=== PATIENT | male | born 1955 | race Caucasian/White ===

== ENCOUNTER → 2018-02-19 16:22 | Outpatient (CLI) | payer OTHER, SELFPAY ==
--- NOTE | 2018-02-19 16:27 | DI.RAD.S_ITS ---
PROCEDURE: XR HAND RT MIN 3V INDICATIONS: traumatic 3rd MCP joint pain TECHNIQUE: 3 views of the hand(s) acquired. COMPARISON: [facility], , HAND 3V RIGHT, 06/28/2013, 10:51. FINDINGS: Bones: No fractures or dislocations. Carpal bones are normally aligned. No suspicious bony lesions. Mild second MCP degenerative spurring. There is also spurring at the first CMC joint Soft tissues: No suspicious soft tissue calcifications. IMPRESSION: No fracture. Dictated by: Michel Hayden M.D. on 02/19/2018 at 17:13 Approved by: Michel Hayden M.D. on 02/19/2018 at 17:14
--- NOTE | 2018-02-19 16:27 | DI.RAD.S_ITS ---
PROCEDURE: XR HAND LT MIN 3V INDICATIONS: traumatic 3rd MCP joint pain TECHNIQUE: 3 views of the hand(s) acquired. COMPARISON: [facility], , HAND 3V RIGHT, 06/28/2013, 10:51. FINDINGS: Bones: No fractures or dislocations. Carpal bones are normally aligned. No suspicious bony lesions. Chronic appearing calcific focus projects adjacent to the third metacarpal head. No definite donor site is seen. There is spurring of the third MCP joint. Spurring at the first CMC and triscaphe joints. Soft tissues: No suspicious soft tissue calcifications. IMPRESSION: No definite fracture seen. Chronic appearing calcific focus projecting adjacent to the third metacarpal head. Mild left hand joint degeneration. Dictated by: Michel Hayden M.D. on 02/19/2018 at 17:14 Approved by: Michel Hayden M.D. on 02/19/2018 at 17:16
== END ==
PROVIDERS: Family Provider Family Medicine; PCP Family Medicine; Visit Provider Physician Assistant
DX: M79.641 Pain in right hand (principal); M79.642 Pain in left hand; M19.042 Primary osteoarthritis, left hand
CPT/HCPCS: 73130

== ENCOUNTER → 2018-04-17 06:34 | Outpatient (CLI) | payer OTHER, SELFPAY ==
[2018-04-17 07:59] LABS: Blood Urea Nitrogen 20 mg/dL (9-20); Calcium 9.1 mg/dL (8.4-10.2); Carbon Dioxide 29 mmol/L (22-32); Chloride 103 mmol/L (98-107); Cholesterol 173 mg/dL (140-199); Estimated Glomerular Filt Rate > 60.0 mL/min (>60); Glucose 115 mg/dL (80-110); HDL Cholesterol 72 mg/dL (40-60); HEMOLYSIS 21 (0-50); LDL Cholesterol Calculated 91 mg/dL (<100); Potassium 4.6 mmol/L (3.4-5.1); Sodium 140 mmol/L (137-145); Triglycerides 48 mg/dL (35-150)
[2018-04-17 08:16] LABS: Vitamin D 25 Hydroxy (D3) 34.6 ng/mL (30.0-100.0)
[2018-04-17 08:39] LABS: Hemoglobin A1C% w Est Avg Glu 8.6 % (4.0-6.0)
[2018-04-17 08:56] LABS: TSH w/ Reflex to FT4 1.11 uIU/mL (0.47-4.68)
[2018-04-23 08:29] LABS: ANA Screen NEGATIVE (Negative); DNA Antibody Crithidia IFA NEGATIVE (Negative); Rheumatoid Factor <14 IU/mL; Sjogren Antiboday SS-A <1.0 NEG AI (<1.0 NEGATIVE); Sjogren Antiboday SS-B <1.0 NEG AI (<1.0 NEGATIVE); Sm Antibody <1.0 NEG AI (<1.0 NEGATIVE); Sm/RNP Antibody <1.0 NEG AI (<1.0 NEGATIVE)
== END ==
PROVIDERS: PCP Student in an Organized Health Care Education/Training Program; Visit Provider Student in an Organized Health Care Education/Training Program
DX: E55.9 Vitamin D deficiency, unspecified (principal); E10.9 Type 1 diabetes mellitus without complications
CPT/HCPCS: 36415; 80048; 80061; 82306; 83036; 84443; 86038; 86430

== ENCOUNTER → 2018-07-04 13:36 | Outpatient (CLI) | payer OTHER, SELFPAY ==
--- NOTE | 2018-07-04 13:44 | DI.MRI.S_ITS ---
PROCEDURE: MR HAND LT WO CON INDICATIONS: Recent hand injury TECHNIQUE: Noncontrast coronal T1 spin echo and T2 fast spin echo with fat saturation, axial proton density fast spin echo and T2 fast spin echo with fat saturation, sagittal T1 spin echo and STIR through the hand and fingers. COMPARISON: [facility], CR, XR HAND LT MIN 3V, 02/19/2018, 16:09. FINDINGS: Image quality: Excellent. Bones: The bones are normally aligned, without marrow contusions or fractures. Subcentimeter marrow signal changes involving the second, third and fifth metacarpal heads, demonstrating T1 hypointensity and T2 hyperintensity. Soft tissues: Visualized muscles demonstrate normal bulk and internal signal. No intramuscular masses identified. No ganglion cysts. Thickening of the extensor digitorum tendon with intrasubstance signal change suggesting age-indeterminate strain. This is most prominent in the level of the distal radius. Low-grade extensor carpi radialis longus and brevis tenosynovitis. IMPRESSION: No evidence of occult fracture Thickening and intrasubstance signal change of the extensor digitorum tendon suggesting age-indeterminate strain. Please correlate to exam findings. Low-grade extensor carpi radialis longus and brevis tenosynovitis Subcentimeter marrow signal changes at the second, third and fifth metacarpal heads raising possibility of erosive arthropathy although incidental degenerative cystic changes in the differential. Recommend correlation with laboratory studies and if needed MRI of the hand with and without contrast could be performed to assess for inflammatory arthropathy. Dictated by: Michel Hayden M.D. on 07/06/2018 at 9:30 Approved by: Michel Hayden M.D. on 07/06/2018 at 9:41
== END ==
PROVIDERS: PCP Student in an Organized Health Care Education/Training Program; Visit Provider Physical Medicine & Rehabilitation
DX: S69.92XA Unspecified injury of left wrist, hand and finger(s), initial encounter (principal); M65.842 Other synovitis and tenosynovitis, left hand
CPT/HCPCS: 73218

== ENCOUNTER → 2019-02-05 16:17 | Outpatient (CLI) | payer OTHER, SELFPAY ==
[2019-02-05 17:18] LABS: BUN Creatinine Ratio 21.1 (6-22); Blood Urea Nitrogen 19 mg/dL (9-20); Calcium 9.7 mg/dL (8.4-10.2); Carbon Dioxide 28 mmol/L (22-32); Chloride 100 mmol/L (98-107); Estimated Glomerular Filt Rate > 60.0 mL/min (>60); Glucose 212 mg/dL (80-110); HEMOLYSIS 26 (0-50); Potassium 4.7 mmol/L (3.4-5.1); Sodium 138 mmol/L (137-145)
[2019-02-05 17:19] LABS: Creatinine Urine Random 54.2 mg/dL
[2019-02-05 17:35] LABS: Microalbumin Urine Random < 0.6 mg/dL (0-1.6)
[2019-02-05 17:47] LABS: Prostate Specific Antigen Scrn 0.672 ng/mL (0.1-4.0)
== END ==
PROVIDERS: PCP Student in an Organized Health Care Education/Training Program; Visit Provider Student in an Organized Health Care Education/Training Program
DX: Z12.5 Encounter for screening for malignant neoplasm of prostate (principal); E10.9 Type 1 diabetes mellitus without complications; I10 Essential (primary) hypertension
CPT/HCPCS: 36415; 80048; 82043; 82570; 83036; G0103

== ENCOUNTER 2019-05-21 07:27 | Day surgery (SDC) | payer OTHER, SELFPAY ==
[2019-05-21 07:47] VITALS: BP 131/69; PULSE 68; RESP 15; TEMP 36.6; O2SAT 98; BMI 21.7
--- NOTE | 2019-05-21 07:57 | PM.HP.1 ---
History of Present Illness History of Present Illness Date Patient Seen: 05/21/19 Time Patient Seen: 07:57 Chief complaint: 20605 Narrative: This is a 63-year-old man who had a prior screening colonoscopy 11 years ago, was told that it was normal and he needed a repeat colonoscopy in 10 years. He denies any melena, hematochezia, unexplained weight loss, or unexplained abdominal pain. ROS: Thirteen system review is otherwise negative other than as mentioned below and in HPI. PE: GENERAL: Well groomed and cooperative. Appears stated age. Answers questions promptly and appropriately. Vital signs noted. HENT: Normocephalic, atraumatic. Hearing intact. Oral mucosa is pink and moist. EYES: Conjunctiva pink, sclera white, no periorbital swelling. CARDIOVASCULAR: Regular rate. No pedal edema. RESPIRATORY: Non-tachypneic, breathing comfortably on room air. GASTROINTESTINAL: Abdomen soft and non-distended GENITALURINARY: No flank tenderness. MUSCULOSKELETAL: Equal tone and mass bilaterally. SKIN: Warm, dry, soft, appropriate color for ethnicity. No other lesions, rashes, or wounds. NEURO: Alert and Oriented X 3. No gross sensory deficits, or cognitive issues. PSYCH: Appropriate affect and mood. Patient History Surgical History History of vasectomy (Resolved 1982) Family & Social History Family History Father Parkinson's disease Mother Lung cancer Brother Paraplegia MVA (motor vehicle accident) Brother No problems noted. Daughter No problems noted. Tobacco & Substance use: Smoking Status Never smoker alcohol intake current Meds Home Medications and Allergies Home Medications Medication Instructions Recorded Confirmed Type lancets #100 each 04/24/18 05/21/19 Rx insulin glargine 100 unit/mL 20 unit SUBCUT HS #20 ml 09/15/18 05/21/19 Rx subcutaneous solution Glucose: Test Strips #1 ea 09/24/18 05/21/19 Rx atorvastatin 20 mg tablet 20 mg PO HS #90 tab 12/11/18 05/21/19 Rx losartan 50 mg tablet 50 mg PO DAILY #90 tab 12/21/18 05/21/19 Rx aspirin 81 mg tablet,delayed 81 mg PO DAILY 02/06/19 05/21/19 History release BD INSULIN SYRINGE Ultra Fine #100 each 02/08/19 05/21/19 Rx 0.3ML insulin aspart U-100 100 unit/mL See Rx Instructions SUBCUT SEE 05/14/19 05/21/19 Rx (3 mL) subcutaneous pen INSTRUCTIONS #3 each MDD 30 units Allergies Allergy/AdvReac Type Severity Reaction Status Date / Time lisinopril AdvReac Mild Cough Verified 02/05/19 15:36 Assessment & Plan Assessment and plan (1) At average risk for colon cancer: Current visit: Yes Status: Acute (2) Encounter for screening colonoscopy: Current visit: Yes Status: Acute Assessment & Plan narrative: Risks and benefits of colonoscopy were discussed with the patient including risk of bleeding, perforation, need for additional procedures. The patient desires to proceed with his colonoscopy procedure. Time Spent With Patient Time with patient: 15-24 minutes Quality VTE Deep Vein Thrombosis/Pulmonary Embolism Present on Admission: No
[2019-05-21] MEDS: SODIUM CHLORIDE 0.9% 1,000 ML 200 ML IV (08:01)
--- NOTE | 2019-05-21 08:25 | PM.OP.ENDO ---
Operative Date/Time/Diagnoses Date of procedure: 05/21/19 Time of procedure: 08:25 Pre-op diagnosis: Average risk for colon cancer Post-op diagnosis: same Procedure & Clinicians Study performed: Screening colonoscopy Same procedure as scheduled: Yes Indications: Average risk for colon cancer, 10 years since last colonoscopy Surgeon: Jing Melendez Procedure Notes SCOAP/Timeout: Performed Procedure in detail: The patient was brought to the room and placed in left lateral decubitus position with all bony prominences padded. A time-out was performed and then the patient was given procedural sedation starting with 4 mg of Versed and 100 mcg of fentanyl. A total of 5 mg of Versed and 150 micro g of fentanyl were used for the entire procedure. Vitals were monitored throughout the procedure and remained stable. Once adequately sedated the procedure was begun. A rectal exam was performed revealing no abnormalities. The colonoscope was then introduced to the rectum and advanced to the cecum in the usual fashion. The cecum was identified by the appendiceal orifice, the mucosal tri-fold, and the ileocecal valve. The scope was then retracted while rotating side to side and examining each mucosal fold. At the conclusion of the procedure retroflexion was performed and small grade 2 internal hemorrhoids without stigmata of bleeding were seen. The scope was then withdrawn from the rectum the procedure was concluded. The patient tolerated the procedure well and was transferred to the PACU in stable condition. Scope withdrawal time: 8 Sedation minutes: 20 Findings: internal hemorrhoids Specimen(s): none sent Complications: none Impression: Normal colon, internal hemorrhoids Post-procedure Recommendations: Colonscopy in 10 years (Unless concerning symptoms arise before then) Follow up: as needed Disposition: PACU
[2019-05-21] MEDS: fentaNYL 250 MCG/5 ML INJ IV (08:28)
[2019-05-21] MEDS: MIDAZOLAM 5 MG/5 ML VIAL IV (08:28)
[2019-05-21 08:30] VITALS: BP 113/64; PULSE 78; RESP 27; TEMP 36.8; O2SAT 96
[2019-05-21 08:35] VITALS: BP 116/57; PULSE 76; RESP 17; O2SAT 98
[2019-05-21 08:39] VITALS: BP 114/64; PULSE 76; RESP 18; TEMP 36.9; O2SAT 98
== END 2019-05-21 08:58 | disposition home or self-care (01) ==
PROVIDERS: PCP Student in an Organized Health Care Education/Training Program; Visit Provider Surgery
PROC: 0DJD8ZZ Inspection of Lower Intestinal Tract, Via Natural or Artificial Opening Endoscopic (ICD-10-PCS; CPT 45378; principal; 2019-05-21 08:30)
DX: Z12.11 Encounter for screening for malignant neoplasm of colon (principal); E11.9 Type 2 diabetes mellitus without complications; Z79.4 Long term (current) use of insulin; I10 Essential (primary) hypertension; E78.5 Hyperlipidemia, unspecified; K64.1 Second degree hemorrhoids
CPT/HCPCS: 45378; 99152; J2250; J3010

== ENCOUNTER → 2019-08-11 11:38 | Outpatient (CLI) | payer OTHER, SELFPAY ==
[2019-08-11 12:26] LABS: Hemoglobin A1C% w Est Avg Glu 8.2 % (4.0-6.0)
[2019-08-11 13:05] LABS: BUN Creatinine Ratio 21.3 (6-22); Blood Urea Nitrogen 16 mg/dL (9-20); Calcium 9.2 mg/dL (8.4-10.2); Carbon Dioxide 29 mmol/L (22-32); Chloride 102 mmol/L (98-107); Estimated Glomerular Filt Rate > 60.0 mL/min (>60); Glucose 295 mg/dL (80-110); HEMOLYSIS < 15 (0-50); Potassium 4.8 mmol/L (3.4-5.1); Sodium 136 mmol/L (137-145)
== END ==
PROVIDERS: PCP Student in an Organized Health Care Education/Training Program; Referring Provider Student in an Organized Health Care Education/Training Program; Visit Provider Student in an Organized Health Care Education/Training Program
DX: E11.9 Type 2 diabetes mellitus without complications (principal)
CPT/HCPCS: 36415; 80048; 83036

== ENCOUNTER → 2019-12-06 10:37 | Outpatient (CLI) | payer OTHER, SELFPAY ==
[2019-12-06 11:13] LABS: Hemoglobin A1C% w Est Avg Glu 8.3 % (4.0-6.0)
== END ==
PROVIDERS: PCP Student in an Organized Health Care Education/Training Program; Referring Provider Student in an Organized Health Care Education/Training Program; Visit Provider Student in an Organized Health Care Education/Training Program
DX: E11.9 Type 2 diabetes mellitus without complications (principal)
CPT/HCPCS: 36415; 83036

== ENCOUNTER → 2020-05-31 08:25 | Outpatient (CLI) | payer OTHER, SELFPAY ==
[2020-05-31 09:43] LABS: Hemoglobin A1C% w Est Avg Glu 8.3 % (4.0-6.0)
[2020-05-31 10:08] LABS: Microalbumin Urine Random < 0.6 mg/dL (0-1.6)
[2020-05-31 10:29] LABS: Prostate Specific Antigen Scrn 0.605 ng/mL (0.1-4.0)
== END ==
PROVIDERS: PCP Student in an Organized Health Care Education/Training Program; Referring Provider Student in an Organized Health Care Education/Training Program; Visit Provider Student in an Organized Health Care Education/Training Program
DX: E10.9 Type 1 diabetes mellitus without complications (principal); Z12.5 Encounter for screening for malignant neoplasm of prostate
CPT/HCPCS: 36415; 82043; 82570; 83036; G0103

== ENCOUNTER → 2020-08-10 09:46 | Outpatient (CLI) | payer OTHER, SELFPAY ==
[2020-08-10 10:39] LABS: COVID19 -Nasal RAPID Negative (Negative)
== END ==
PROVIDERS: PCP Student in an Organized Health Care Education/Training Program; Visit Provider Student in an Organized Health Care Education/Training Program
DX: R09.81 Nasal congestion (principal); Z20.822 Contact with and (suspected) exposure to COVID-19
CPT/HCPCS: 87635

== ENCOUNTER → 2021-01-16 15:24 | Outpatient (CLI) | payer OTHER, SELFPAY ==
[2021-01-16 16:17] LABS: Hemoglobin A1C% w Est Avg Glu 8.3 % (4.0-6.0)
== END ==
PROVIDERS: PCP Student in an Organized Health Care Education/Training Program; Referring Provider Student in an Organized Health Care Education/Training Program; Visit Provider Student in an Organized Health Care Education/Training Program
DX: E10.9 Type 1 diabetes mellitus without complications (principal)
CPT/HCPCS: 36415; 83036

== ENCOUNTER → 2021-05-08 07:06 | Outpatient (CLI) | payer OTHER, SELFPAY ==
[2021-05-08 08:05] LABS: Hemoglobin A1C% w Est Avg Glu 8.7 % (4.0-6.0)
== END ==
PROVIDERS: PCP Student in an Organized Health Care Education/Training Program; Referring Provider Student in an Organized Health Care Education/Training Program; Visit Provider Student in an Organized Health Care Education/Training Program
DX: E10.9 Type 1 diabetes mellitus without complications (principal)
CPT/HCPCS: 36415; 83036

== ENCOUNTER → 2021-08-28 06:40 | Outpatient (CLI) | payer OTHER, SELFPAY ==
[2021-08-28 08:10] LABS: Creatinine Urine Random 112.7 mg/dL
[2021-08-28 08:15] LABS: Microalbumi Creatinin Ratio Ur 6.2 ug/mg CR (<30); Microalbumin Urine Random 0.7 mg/dL (0-1.6)
[2021-08-28 08:18] LABS: Hemoglobin A1C% w Est Avg Glu 8.3 % (4.0-6.0)
[2021-08-28 08:20] LABS: BUN Creatinine Ratio 20.9 (6-22); Blood Urea Nitrogen 19 mg/dL (9-20); Calcium 8.6 mg/dL (8.4-10.2); Carbon Dioxide 30 mmol/L (22-32); Chloride 105 mmol/L (98-107); Cholesterol 194 mg/dL (140-199); Estimated Glomerular Filt Rate > 60 mL/min (>60); Glucose 161 mg/dL (80-110); HDL Cholesterol 103 mg/dL (40-60); HEMOLYSIS < 15 (0-50); LDL Cholesterol Calculated 83 mg/dL (<100); Potassium 4.3 mmol/L (3.4-5.1); Sodium 140 mmol/L (137-145); Triglycerides 38 mg/dL (35-150)
[2021-08-28 08:49] LABS: Prostate Specific Antigen Scrn 0.961 ng/mL (0.1-4.0)
== END ==
PROVIDERS: PCP Student in an Organized Health Care Education/Training Program; Referring Provider Student in an Organized Health Care Education/Training Program; Visit Provider Student in an Organized Health Care Education/Training Program
DX: E10.69 Type 1 diabetes mellitus with other specified complication (principal); E10.9 Type 1 diabetes mellitus without complications; E78.2 Mixed hyperlipidemia; I10 Essential (primary) hypertension; Z12.5 Encounter for screening for malignant neoplasm of prostate
CPT/HCPCS: 36415; 80048; 80061; 82043; 82570; 83036; G0103

== ENCOUNTER → 2022-01-28 12:46 | Outpatient (CLI) | payer OTHER, SELFPAY ==
[2022-01-28 18:53] LABS: Hemoglobin A1C% w Est Avg Glu 8.8 % (4.0-6.0)
== END ==
PROVIDERS: PCP Student in an Organized Health Care Education/Training Program; Referring Provider Student in an Organized Health Care Education/Training Program; Visit Provider Student in an Organized Health Care Education/Training Program
DX: E10.9 Type 1 diabetes mellitus without complications (principal)
CPT/HCPCS: 36415; 83036

== ENCOUNTER → 2022-09-11 06:46 | Outpatient (CLI) | payer OTHER, SELFPAY ==
[2022-09-11 08:46] LABS: BUN Creatinine Ratio 21.6 (6-22); Blood Urea Nitrogen 16 mg/dL (9-20); Calcium 8.3 mg/dL (8.4-10.2); Carbon Dioxide 30 mmol/L (22-32); Chloride 103 mmol/L (98-107); Cholesterol 167 mg/dL (140-199); Estimated Glomerular Filt Rate > 60 mL/min (>60); Glucose 184 mg/dL (80-110); HDL Cholesterol 94 mg/dL (40-60); HEMOLYSIS < 15 (0-50); LDL Cholesterol Calculated 63 mg/dL (<100); Potassium 4.3 mmol/L (3.4-5.1); Sodium 138 mmol/L (137-145); Triglycerides 52 mg/dL (35-150)
[2022-09-11 09:10] LABS: Creatinine Urine Random 124.2 mg/dL
[2022-09-11 09:15] LABS: Microalbumi Creatinin Ratio Ur 5.6 ug/mg CR (<30); Microalbumin Urine Random 0.7 mg/dL (0-1.6)
[2022-09-12 07:36] LABS: Labcorp Hemoglobin (Hb) A1c 9.1 % (4.8-5.6)
== END ==
PROVIDERS: PCP Student in an Organized Health Care Education/Training Program; Referring Provider Student in an Organized Health Care Education/Training Program; Visit Provider Student in an Organized Health Care Education/Training Program
DX: E10.69 Type 1 diabetes mellitus with other specified complication (principal); E78.2 Mixed hyperlipidemia; I10 Essential (primary) hypertension
CPT/HCPCS: 36415; 80048; 80061; 82043; 82570; 83036

== ENCOUNTER → 2023-06-09 14:24 | Outpatient (CLI) | payer OTHER, SELFPAY ==
[2023-06-09 16:27] LABS: HEMOLYSIS < 15 (0-50)
[2023-06-09 16:34] LABS: BUN Creatinine Ratio 15.6 (6-22); Blood Urea Nitrogen 10 mg/dL (9-20); Carbon Dioxide 31 mmol/L (22-32); Chloride 101 mmol/L (98-107); Estimated Glomerular Filt Rate > 60 mL/min (>60); Glucose 232 mg/dL (80-110); Sodium 137 mmol/L (137-145)
[2023-06-09 17:03] LABS: TSH w/ Reflex to FT4 1.34 uIU/mL (0.47-4.68)
[2023-06-09 17:13] LABS: Prostate Specific Antigen 0.952 ng/mL (0.10-4.00)
[2023-06-11 06:28] LABS: Labcorp Hemoglobin (Hb) A1c 9.7 % (4.8-5.6)
== END ==
PROVIDERS: PCP Internal Medicine; Referring Provider Internal Medicine; Visit Provider Internal Medicine
DX: N40.1 Benign prostatic hyperplasia with lower urinary tract symptoms (principal); N13.8 Other obstructive and reflux uropathy; E10.9 Type 1 diabetes mellitus without complications; I10 Essential (primary) hypertension
CPT/HCPCS: 36415; 80048; 83036; 84153; 84443

== ENCOUNTER → 2023-07-23 13:53 | Outpatient (CLI) | payer OTHER, SELFPAY ==
--- NOTE | 2023-07-25 11:21 | DIAB.INIT ---
Initial Diabetes Education Assessment Name: Jose Kaiser Date: 07/23/23 Time: 2-3p Dx: Type I Diabetes Jose presents for initial Dm visit. Reports T1DM diagnosis since 2001 at age 46 when he was experiencing weight loss, excessive thirst. FH of T1 with his mother. He manages diabetes with pen MDI and meter. Ordered Dexcom G7. Not wanting a pump at this time. Looking forward to CGM use. Has questions about placement and use. Up to date on eye and dental exams. checks feel daily. Recent hgA1c of 9.7%. Reports lows with wake him, but no other symptoms. Other times he may experience fast heartbeat and vision changes. Treats lows under 50mg/dl with 4oz juice and sometimes protein foods. May treat under 70 md/dl with cereal or added protein foods. Carries glucose gel for lows on the go. Not familiar with carb counting in detail. Not using carb counting for insulin dosing. Dosage seems to be based on trial and error. Has never seen endo. Stated he is unsure what endo would offer. No previous DM education with CDE or RD. Reports not wanting pump in part due to knowing of someone that had a severe pump malfunction that resulted in hospitalization and severe hypoglycemia. 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 He lives with his , whom worries about his hypoglycemia per report. Physical Activity: push ups, bike, active at work. Self-Monitoring Blood Glucose: Fingersticks often through the day, FBG, pre/post meal, HS, for lows. Checks 7x per day or more. Reports FBG of 140-240mg/dl. 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 Provided appropriate educational handouts. Discussed the following topics: Completed intake assessment. Discussed barriers to care. Reviewed Rule of 15 for lows Discussed CGM use, precautions, when to use meter, accuracy, and how to self place Reviewed I:C and correction as an option for managing MDI Reviewed other tech for insulin therapy: pump or patch Discussed role of truckload owner operator for management of T1 Brief review of Dm complication risk Created SMART goals for patient self-care and success. Goals: Call FILIBERTO/[facility] for CGm placement/education prn Download G7 jordan and Clarity jordan Use Rule of 15 for lows Follow-up: KD PAUL follow-up prn. Offered f/u visit, however Jose would like to call for f/u prn. This FILIBERTO/[facility] feels that he could benefit from follow-up given new tech and elevated hgA1c. Jose reports feeling confident that CGM use will allow him to manage his BG more effectively and does not need f/u at this time. Dominique Leahy RDN, [facility] Certified Diabetes Care and Social Work Specialist P: [phone] Thank you for this referral
== END ==
PROVIDERS: PCP Internal Medicine; Referring Provider Internal Medicine; Visit Provider Internal Medicine
DX: E11.9 Type 2 diabetes mellitus without complications (principal); Z79.4 Long term (current) use of insulin; Z71.3 Dietary counseling and surveillance
CPT/HCPCS: G0108

== ENCOUNTER → 2023-12-09 14:32 | Outpatient (CLI) | payer OTHER, SELFPAY ==
[2023-12-09 15:10] LABS: Hemoglobin A1C% w Est Avg Glu 7.9 % (4.0-6.0)
[2023-12-09 15:20] LABS: Aspartate Aminotransferase 29 IU/L (17-59); Blood Urea Nitrogen 16 mg/dL (9-20); Calcium 9.4 mg/dL (8.4-10.2); Carbon Dioxide 29 mmol/L (22-32); Chloride 105 mmol/L (98-107); Cholesterol 169 mg/dL (140-199); Estimated Glomerular Filt Rate > 60 mL/min (>60); Glucose 79 mg/dL (80-110); HEMOLYSIS < 15 (0-50); Potassium 4.2 mmol/L (3.4-5.1); Sodium 139 mmol/L (137-145); Triglycerides 44 mg/dL (35-150)
[2023-12-09 15:29] LABS: HDL Cholesterol 111 mg/dL (40-60); LDL Cholesterol Calculated 49 mg/dL (<100)
[2023-12-09 17:52] LABS: Creatinine Urine Random 79.53 mg/dL
[2023-12-09 17:59] LABS: Microalbumin Urine Random < 0.6 mg/dL (0-1.6)
== END ==
LOC: LAB 14:33
PROVIDERS: PCP Internal Medicine; Referring Provider Internal Medicine; Visit Provider Internal Medicine
DX: E10.69 Type 1 diabetes mellitus with other specified complication (principal); E78.2 Mixed hyperlipidemia; I10 Essential (primary) hypertension
CPT/HCPCS: 36415; 80048; 80061; 82043; 82570; 83036; 84450

== ENCOUNTER → 2024-03-14 15:01 | Outpatient (CLI) | payer OTHER, SELFPAY ==
--- NOTE | 2024-03-14 15:03 | DI.RAD.S_ITS ---
PROCEDURE: XR CHEST 2V INDICATIONS: Cough TECHNIQUE: 2 views of the chest were acquired. COMPARISON: None. FINDINGS: Surgical changes and devices: None. Lungs and pleura: Lungs are clear. No pleural effusions or pneumothorax. Mediastinum: Mediastinal contours are normal. Heart size is normal. Bones and chest wall: No suspicious bony abnormalities. Soft tissues appear unremarkable. IMPRESSION: Normal two view chest Approved by: Alan Pereira M.D. on 03/14/2024 at 14:54
== END ==
LOC: RAD 15:02
PROVIDERS: PCP Internal Medicine; Referring Provider Nurse Practitioner Family; Visit Provider Nurse Practitioner Family
DX: R05.9 Cough, unspecified (principal)
CPT/HCPCS: 71046

== ENCOUNTER → 2025-01-04 12:58 | Outpatient (CLI) | payer OTHER, SELFPAY ==
--- NOTE | 2025-02-03 11:13 | DIAB.INIT ---
Initial Diabetes Education Assessment Name: Jose Kaiser Date: 01/04/25 Time: 105-205p Dx: Type I Diabetes Provider: Fran Preferred Learning Style: Watching Jose presents with , Earline, for initial Dm visit. Previous RD visit in 06/2023. At that time Jose was not interested in pump therapy, but today he expressed interest in learning more about diabetes technology. Currently managing with MDI. After reviewing each pump type, Jose would like to go with a tubeless pump, Omnipod. Anthropometrics: Ht: 5'10 Wt: 149# 11/2024 Weight history: Physical Activity: Walking 5 days per week Self-Monitoring Blood Glucose: using CGM, not reviewed today. Date Pre Post Pre Post Pre Post HS Diabetes Medications: 15u Glargine 6-15u ac Novolog Pertinent Labs:. 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 Provided appropriate educational handouts. Discussed the following topics: Completed intake assessment. Review of insulin pump types, function, closed loop, bolusing, placement, pro/cons Created SMART goals for patient self-care and success. Goals: diet supervisor OP5 once rx'd Follow-up: KD PAUL follow-up for pump start after pump picked up. After this visit pt determined insurance will not cover the pump he prefers, OP5. RD communicated with Omnipod team and plan is to start with samples of OP5 and then once insurance changes in April, will try with insurance coverage at that time. Dominique Leahy RDN, [facility] Certified Diabetes Care and Drawing In Machine Tender Helper P: [phone] Thank you for this referral
== END ==
LOC: DIET 12:58
PROVIDERS: PCP Internal Medicine; Referring Provider Internal Medicine
DX: E10.9 Type 1 diabetes mellitus without complications (principal); Z71.3 Dietary counseling and surveillance
CPT/HCPCS: G0108

== ENCOUNTER → 2025-03-03 09:26 | Outpatient (CLI) | payer OTHER, SELFPAY ==
--- NOTE | 2025-03-03 14:39 | DIAB.FU ---
Follow-up Diabetes Education Assessment: Omnipod 5 Sample Start Name: Jose Kaiser Date: 03/03/25 Time: 250-3227a Dx: Type I Diabetes Provider: Fran Garcia presents with , Earline, for OP5 start and training. Current insurance will not cover the insulin pump that he prefers, Omnipod5; however, Omnipod representatives have agreed to provide samples until next year when Jose's insurance should change for better pump coverage. If not, we will address the option for a different pump at that time. Continues with MDI at this time. Settings: TDI of 38u x .75: 28u Kg of 68 x 0.5: 33.85 avu TDI Basal rate: 0.65u/hour IC: 13g/u ISF: 55mg/dl per unit target and correct above 110mg/dl Max bolus 15u per pt request Max basal: 2x basal rate = 1.3u/hr Self-Monitoring Blood Glucose: TIR: 25% very high 45% high 30% in range 0% low <1% very low avmg/dl std dev: 65mg/dl GMI: 8.5% variation: 30% Diabetes Medications: 15u Glargine 6-15u ac Novolog Pertinent Labs:. 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 Provided appropriate educational handouts. Discussed the following topics: Set up OP5 and glooko acct, connected to IH glooko for review of reports Reviewed use, precautions, benefits of OP5 system, how it connects to Dexcom G7 Reviewed basal and bolus Reviewed how to bolus for meals and correction Set up custom foods to bolus for meals Discussed replacement of pod and alerts on pump Reviewed importance of limited time off pump and when to go back to MDI if needed Encouraged keeping insulin pens/needles for back up Discussed scar tissue and placement of OP5 RD will message PCP for vials Goals: Bolus for intake and correction Follow-up: RDN CDCES follow-up over phone tomorrow and in three days, then 1:1 visit 5 days from today. Dominique Leahy RDN, [facility] Certified Diabetes Care and Pin Machine Tender P: [phone] Thank you for this referral
== END ==
LOC: DIET 09:26
PROVIDERS: PCP Internal Medicine; Referring Provider Internal Medicine
DX: Z46.81 Encounter for fitting and adjustment of insulin pump (principal); Z71.3 Dietary counseling and surveillance; E10.9 Type 1 diabetes mellitus without complications
CPT/HCPCS: G0108

== ENCOUNTER → 2025-03-09 12:50 | Outpatient (CLI) | payer OTHER, SELFPAY ==
--- NOTE | 2025-03-09 12:57 | DIAB.MNTFU ---
Follow-up Diabetes Medical Nutrition Therapy Assessment Name: Jose Kaiser Date: 03/09/25 Time: 1-2p Dx: Type I Diabetes Provider: Fran Garcia presents with , Earline. [place] OP5 pump. Bolusing for meals, but often still having postprandial elevations. Could reduce IC ratio by 20% to see if that provides better coverage, however pt would like to try bolusing more first. Today we reviewed current portions, often 2c rice/pasta or 1 baked potato, cereal x 1.5c. Needed review of how to add custom foods for bolusing and how to read food labels. Settings: TDD: 21.5u Basal rate: 0.65u/hour IC: 13g/u ISF: 55mg/dl per unit target and correct above 110mg/dl Max bolus 15u per pt request Max basal: 2x basal rate = 1.3u/hr Self-Monitoring Blood Glucose: Improved TIR but still having excessive hyperglycemia. Needs better postprandial coverage. TIR: 15% very high 29% high 56% in range 0% low 0% very low avmg/dl std dev: 61mg/dl GMI: % variation: 33.3% TIR: 25% very high 45% high 30% in range 0% low <1% very low avmg/dl std dev: 65mg/dl GMI: 8.5% variation: 30% Diabetes Medications: 15u Glargine-- d/c Novolog via pump Pertinent Labs:. 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 Provided appropriate educational handouts. Discussed the following topics: Reviewed label reading Discussed bolusing for meals Added custom foods based on reported portions and carb content Reviewed how insulin works in OP5 Goals: Bolus for intake and correction- met use custom foods- new shell shop supervisor vials- new Add custom food carb prn- new Follow-up: RDN CDCES follow-up 3-4 weeks for sooner prn. RD will check Jose's OP5 reports in 2 days and 7 days remotely and call prn. Dominique Leahy RDN, [facility] Certified Diabetes Care and Book Critic P: [phone] Thank you for this referral
== END ==
LOC: DIET 12:50
PROVIDERS: PCP Internal Medicine; Referring Provider Internal Medicine
DX: E11.65 Type 2 diabetes mellitus with hyperglycemia (principal); Z71.3 Dietary counseling and surveillance; Z96.41 Presence of insulin pump (external) (internal)
CPT/HCPCS: 97802

== ENCOUNTER → 2025-03-30 11:08 | Outpatient (CLI) | payer OTHER, SELFPAY ==
--- NOTE | 2025-03-30 13:17 | DIAB.FU ---
Follow-up Diabetes Education Assessment Name: Jose Kaiser Date: 03/30/25 Time: 11a Dx: Type I Diabetes Provider: Fran Garcia presents with , Earline. Seems to be having accuracy issues with Dexcom G7, which is impacting Omnipod function. RD has noticed this with other patients as well. Today Jose would like to temporarily increase the target for his insulin pump from 110 to 130mg/dl. Also having elevations after meals often, even when bolusing, indicating need for more insulin at meals and a change to IC ratio. Jose would like to make conservative changes. Currently bolusing without using sensor info, which would also help with postprandial elevations. Questions regarding pulling insulin from old and new vials. Settings: TDD: 21.5u ----30.4u Basal rate: 0.65u/hour IC: 13g/u--- 12g/u ISF: 55mg/dl per unit target and correct above 110mg/dl--- 130mg/dl Max bolus 15u per pt request Max basal: 2x basal rate = 1.3u/hr Self-Monitoring Blood Glucose: Still having excessive hyperglycemia. Needs better postprandial coverage. TIR: 19% very high 29% high 52% in range 0% low 0% very low avmg/dl std dev: 72mg/dl GMI: 7.9% variation: 37.4% TIR: 15% very high 29% high 56% in range 0% low 0% very low avmg/dl std dev: 61mg/dl GMI: % variation: 33.3% Diabetes Medications: Novolog via pump Pertinent Labs:. 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 Provided appropriate educational handouts. Discussed the following topics: Reviewed bolusing using correction and CHO Discussed variations in Dexcom vs fingersticks Reviewed IC ratio and potential changes of 10-20% changed target range to provide more room for discrepancies in CGM per pt req Reviewed how to pull insulin from vials new vs old manual vs auto mode Goals: use custom foods- met supervisor poultry processing vials- met Add custom food carb prn- cont Use sensor info when bolusing for meals- new Pull insulin from newer vial first before older vial of insulin- new [facility] 3-4 weeks for sooner prn. RD will check Jose's OP5 reports in 7 days. Dominique Leahy RDN, [facility] Certified Diabetes Care and It Service Technician P: [phone] Thank you for this referral
== END ==
LOC: DIET 11:09
PROVIDERS: PCP Internal Medicine; Referring Provider Internal Medicine
DX: E10.65 Type 1 diabetes mellitus with hyperglycemia (principal); Z71.3 Dietary counseling and surveillance; Z96.41 Presence of insulin pump (external) (internal)
CPT/HCPCS: G0108

== ENCOUNTER → 2025-04-26 12:52 | Outpatient (CLI) | payer OTHER, SELFPAY ==
--- NOTE | 2025-04-26 16:31 | DIAB.MNTFU ---
Addendum entered by Dominique Leahy 04/26/25 16:40: Nutrition rx: plate method Nutrition Diagnosis: - Excessive CHO intake r/t nutrition knowledge deficit and worries for lows at work aeb pt report, CGM results Original Note: Follow-up Diabetes Medical Nutrition Therapy Assessment Name: Jose Kaiser Date: 04/26/25 Time: 1-145p Dx: Type I Diabetes Provider: Fran Garcia presents for DM follow-up visit. Continues to report accuracy issues with Dexcom G7, which is impacting Omnipod function. Continues at higher target of 130mg/dl to help reduce lows. Contacted Dexcom and placed a report on issues and was provided replacement sensors. States he does not feel comfortable reducing target at this time. Starts new insurance in April. Has enough OP5 samples for 2.[address] will coordinate with PCP about rx for OP5 before that time. States he is not sure if he should order more CGM from insurance or not, due to order. Breakfast causing excessive hyperglycemia, toast, cereal, coffee. Settings: TDD: 21.5u ----30.4u---- 33.6u Basal rate: 0.65u/hour IC: 13g/u--- 12g/u ISF: 55mg/dl per unit target and correct above 110mg/dl--- 130mg/dl Max bolus 15u per pt request Max basal: 2x basal rate = 1.3u/hr Self-Monitoring Blood Glucose: Still having excessive hyperglycemia. Needs better postprandial coverage. TIR: 17% very high 38% high 45% in range 0% low 0% very low avmg/dl std dev: 60mg/dl GMI: 8% variation: 30.4 % TIR: 19% very high 29% high 52% in range 0% low 0% very low avmg/dl std dev: 72mg/dl GMI: 7.9% variation: 37.4% Diabetes Medications: Novolog via pump Pertinent Labs:. 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 Provided appropriate educational handouts. Discussed the following topics: Reviewed correction and CHO. seems to be using appropriately. Discussed variations in Dexcom vs fingersticks Encouraged moving toward 120 or 110 target range when feeling lows are less likely with Dexcom variations Reviewed breakfast ideas and bolusing Goals: Use sensor info when bolusing for meals with correction- met Pull insulin from newer vial first before older vial of insulin- met Order more CGm- new Try lower CHO breakfast- new Change target prn- new Follow-up: KD PAUL follow-up 4-5 weeks for sooner prn. Dominique Leahy RDN, [facility] Certified Diabetes Care and Communications Department Chair P: [phone] Thank you for this referral
== END ==
LOC: DIET 12:53
PROVIDERS: PCP Internal Medicine; Referring Provider Internal Medicine
DX: E10.65 Type 1 diabetes mellitus with hyperglycemia (principal); Z71.3 Dietary counseling and surveillance; Z96.41 Presence of insulin pump (external) (internal)
CPT/HCPCS: 97803